=== PATIENT | female | born 1980 | race Caucasian/White ===

== ENCOUNTER → 2017-01-28 | Outpatient (CLI) | payer MEDICAID ==
[~2017-01-28] VITALS: Ht 172.7 cm; Wt 180.6 kg
[~2017-01-28] MED LIST: INVEGA TRI273 MG/0.8 IM; LASIX 40MG TABL40 MG PO; MICRO-K 10 EXT10 MEQ PO; NORCO 325 MG-51 TAB PO; OMEGA-3 1000 MG1 CAP PO; SYNTHROID0.1 MG/TAB PO; ULTRAM 50MG TAB50 MG PO
[2017-01-28 10:51] VITALS: BP 136/86; PULSE 83
[2017-01-28 12:10] VITALS: BP 144/74; PULSE 102
[2017-01-28 12:11] VITALS: BP 130/67; PULSE 102
[2017-01-28 12:13] VITALS: BP 123/68; PULSE 98
== END ==
LOC: COL.CARD 09:54
DX: Z01.810 Encounter for preprocedural cardiovascular examination (principal); R06.02 Shortness of breath
CPT/HCPCS: A9502; J2785

== ENCOUNTER 2017-02-07 12:13 | Observation (INO) | payer MEDICAID ==
[~2017-02-07] VITALS: Ht 167.6 cm; Wt 182.7 kg
[~2017-02-07 12:13] MED LIST changes: -MICRO-K 10 EXT10 MEQ PO; -OMEGA-3 1000 MG1 CAP PO
[2017-02-07 12:47] LABS: CALCIUM 9.6 mg/dL (8.4-10.2); CREATININE, serum 0.66 mg/dL (0.52-1.25); HEMATOCRIT 45.4 % (37.0-47.0); HEMOGLOBIN 15.6 g/dl (12.5-16.0); MEAN CELL VOLUME 93 fl (80.0-100.0); MEAN CORPUSCULAR HEMOGLOBIN 32 pg (27.0-31.0); MEAN CORPUSCULAR HGB CONC 34 g/dl (33.0-37.0); MEAN PLATELET VOLUME 10.1 fl (7.4-10.4); PLATELET COUNT 219 K/mm3 (130-400); POTASSIUM 3.9 mmol/L (3.4-5.0); RED BLOOD COUNT 4.91 M/mm3 (4.10-5.30); REDCELL DISTRIBUTION WIDTH-CV 13.4 % (11.5-14.5); WHITE BLOOD COUNT 10.5 K/mm3 (4.8-10.8)
[2017-02-07 14:35] VITALS: BP 125/81; PULSE 89; TEMP 98.6
[2017-02-07 14:56] LABS: INR 1.1 (0.8-3.0); PROTHROMBIN TIME 12.6 SECONDS (9.7-12.8)
[2017-02-07] MEDS ORDERED: OMEGA-3 1000 MG1 CAP PO (16:09)
[2017-02-07] MEDS ORDERED: MICRO-K 10 EXT10 MEQ PO (20:42)
[2017-02-07 21:35] VITALS: BP 118/56; PULSE 84; TEMP 98.4
[2017-02-08] VITALS (8 sets, daily range): BP systolic 96–142; BP diastolic 53–91; PULSE 73–90; TEMP 97.5–97.8
== END 2017-02-08 16:42 | disposition home or self-care (01) ==
LOC: COL.CAR 12:13 → MEDICAL 16:42
PROVIDERS: Internal Medicine Interventional Cardiology
DX: I51.9 Heart disease, unspecified (principal); E66.01 Morbid (severe) obesity due to excess calories; E03.9 Hypothyroidism, unspecified; R60.9 Edema, unspecified
CPT/HCPCS: C1760; C1769; C1894; G0378; G0379; J2250; J2270; J3010; Q9967

== ENCOUNTER 2020-03-28 15:15 | Inpatient (IN) | payer MEDICAID ==
--- NOTE | 2020-03-27 19:00 | NUR ---
RECEIVED CHANGE OF SHIFT REPORT FROM DAY SHIFT NURSE. BED ALARM ON.
[~2020-03-28] VITALS: Ht 172.7 cm; Wt 124.9 kg
[~2020-03-28 15:15] MED LIST changes: +ATARAX 25MG25 MG/TAB PO; +DAZIDOX10 MG PO; +INVEGA SUSTENN156 MG IM; -INVEGA TRI273 MG/0.8 IM; +MICRO-K 10 EXT10 MEQ PO; +MINIPRESS2 MG PO; +NEURONTIN100 MG/CAP PO; +NEURONTIN300 MG/CAP PO; +OMEGA-3 1000 MG1 CAP PO; +VIIBRYD40 MG PO; +XANAX 0.5MG0.5 MG PO
--- NOTE | 2020-03-28 18:00 | NUR ---
Patient transfered by bed. Oriented to room. Will report off to shift engineer.
[2020-03-28] MEDS ORDERED: FLOMAX 0.40.4 MG/CAP PO (18:53)
[2020-03-28] MEDS ORDERED: PYRIDIUM200 M1 (18:53)
[2020-03-28] MEDS ORDERED: PYRIDIUM200 M1 PO (18:54)
[2020-03-28] MEDS ORDERED: LIDOJEL (18:58)
[2020-03-28] MEDS ORDERED: CUBICIN 500MG500 MG IV (19:00)
[2020-03-28] MEDS ORDERED: XANAX .25M0.25 MG/TA PO (19:01)
[2020-03-28] MEDS ORDERED: SILVADENE CREAM1 TU TP (19:02)
[2020-03-28] MEDS ORDERED: IPRATROPIUM BROM3 M1 IH ×2 (19:05→19:15)
[2020-03-28] MEDS ORDERED: MUCUS RELIEF200 MG PO (19:06)
[2020-03-28] MEDS ORDERED: TESSALON P100 MG/CAP PO (19:10)
[2020-03-28] MEDS ORDERED: NEURONTIN300 MG/CAP PO (19:12)
[2020-03-28] MEDS ORDERED: ASPERCREME1 EACH TP (19:12)
[2020-03-28] MEDS ORDERED: ELIQUIS 5MG PO (19:13)
[2020-03-28] MEDS ORDERED: LOTSPY TOP (19:14)
[2020-03-28] MEDS ORDERED: VIIBRYD40 MG PO (19:15)
[2020-03-28] MEDS ORDERED: GLUTOSE 1515 GM PO (19:16)
[2020-03-28] MEDS ORDERED: NORMAL SALINE FL5 ML IV (19:16)
[2020-03-28] MEDS ORDERED: [UNRECOGNIZED DRUG - OTHER] IV (19:18)
[2020-03-28] MEDS ORDERED: DEXTROSE 525 GM/50 M IJ (19:20)
[2020-03-28 19:21] VITALS: BP 92/51; PULSE 108; TEMP 98.1
--- NOTE | 2020-03-28 20:00 | NUR ---
PATIENT WITH WEAKNESS TO BLE D/T SWELLING, YANDEL HAND CAREER MANAGER EQUAL. SPEECH CLEAR AND APPROPRIATE, ALERT AND ORIENTED AT THIS TIME. CONTINUES TO BE IN CONTACT ISOLATION FROM LLE CELLULITIS. PICC LINE IN PLACE W/FABIANO DRESSING COVERING. BED ALARM ON.
[2020-03-28] MEDS ORDERED: LASIX 40MG TABL40 MG PO (20:02)
[2020-03-28] MEDS ORDERED: DAZIDOX10 MG PO (20:03)
[2020-03-28] MEDS ORDERED: MINIPRESS2 MG PO (20:05)
[2020-03-28] MEDS ORDERED: K-TAB10 PO (20:07)
--- NOTE | 2020-03-29 00:17 | NUR ---
DRESSING CHANGE TO LLE PER DR ORDER. BED ALARM ON WHILE PATIENT IN BED. OBSERVED YELLOWISH CLEAR DRAINAGE FROM LLE FLUID FILLED RAISED AREA TO LATERAL LEFT LEG
[2020-03-29 05:56] VITALS: BP 92/54; PULSE 107; TEMP 97.7
--- NOTE | 2020-03-29 07:40 | NUR ---
CHANGE OF SHIFT REPORT GIVEN TO DAY SHIFT NURSEALEX. BED ALARM ON.
[2020-03-29 10:29] VITALS: BP 91/61; PULSE 103
[2020-03-29 11:02] LABS: CALCIUM 7.4 mg/dL (8.4-10.2); CREATININE, serum 0.64 (0.52-1.25); MAGNESIUM 1.6 mg/dL (1.6-2.3); POTASSIUM 3.7 mmol/L (3.4-5.0)
--- NOTE | 2020-03-29 15:27 | NUR ---
Assistant Branch Manager met with patient to complete intake as patient is new to [facility]. Patient lives in [place] with her two children ages 18 and 15. Patient states her 15 year old daughter is staying with her mother, Camille (ph#[phone]) and her 18 year old son is at home with her boyfriend, Felix Arrington checking in periodically to make sure he is going to school. Patient has been seeing OZZY Urena for primary care at [facility] but reports she would like to switch primary care providers. SW will follow up with list of [place] providers per patient's request. Patient obtains medications from [facility] in [place] and has a walker and rollator at home. Patient states she was independent with ADLS before getting sick. SW will continue to follow.
[2020-03-29 16:11] LABS: COLLECTION METHOD CLEAN CATCH
[2020-03-29 16:23] LABS: HYALINE CAST >12 /lpf; MUCOUS Present /lpf; PH 5 (5-8); SQUAMOUS EPITHELIAL None Seen /hpf; URINE APPEARANCE Hazy; URINE BACTERIA Rare /hpf; URINE BILIRUBIN Negative (NEGATIVE); URINE BLOOD 2+ (NEGATIVE); URINE CALCIUM OXALATE CRYSTAL Present /hpf; URINE COLOR Amber; URINE GLUCOSE Negative (NEGATIVE); URINE KETONE Negative (NEGATIVE); URINE LEUKOCYTE ESTERASE Negative (NEGATIVE); URINE NITRATE Negative (NEGATIVE); URINE PROTEIN(semi-quant) Negative (NEGATIVE); URINE UROBILINOGEN Negative (NEGATIVE)
[2020-03-29 17:39] VITALS: BP 98/62; PULSE 97; TEMP 98
--- NOTE | 2020-03-29 20:02 | NUR ---
Patient attended all therapies today. She is currently resting in bed, call light in reach and bed alarm set. Dressing changed to right buttock stage II ulcer measuring 2cm x 1 cm oblong shape. Area cleaned patted dry and applied new mepilex to area. Schneider Catheter was removed at 5:00 PM this evening with no complications per orders of Dr. Abdi. Patient had some yeast build up in kathy area and this nurse asked for an order for Diflucan. Awaiting Dr. Abdi to put order in. Patient reporting itching, redness and discharge. This was reported to night nurse. Urine was tea colored and had sedement and UA/UC was collected and sent to lab. Awaiting results. Patient had nausea this morning a few times and was given prn Zofran with good effect. Dressing was changed to left lower leg with yellow serous drainage observed. Area was redressed with silvaderm cream/ xeroform/abd pad/ and kerlix. Will continue to monitor. Patient does not eat large meals due to her prior bariatric surgery. She did not eat much of each meal, but does like small meals and did have jello in between meals today.
--- NOTE | 2020-03-29 22:26 | NUR ---
Handover received from AMANDA Gonsalez. Pt was on her bed while this nurse went for bedsite handover. Pt seems relaxed and and rested. Pt stated that she feels better after having shower. Pt assessment completed and charted, alert, oriented, roomair. Meds provided as per MAR, pt vomited after a while of taking meds. However, pt refused to take zofran saying that she feels better after wards. PRN pain meds provided on pt request. Pt is settled on her bed, watching tv. Call light is on reach, bed alarm is on, No further needs at this time. Will keep monitoring.
[2020-03-30 06:00] VITALS: BP 103/63; PULSE 98; TEMP 98.1
--- NOTE | 2020-03-30 07:58 | NUR ---
Pt had an uneventful night. Handover given to the day shift. No further needs at this time.
[2020-03-30 08:04] LABS: CALCIUM 7.3 mg/dL (8.4-10.2); CREATININE, serum 0.61 (0.52-1.25); POTASSIUM 3.2 mmol/L (3.4-5.0)
--- NOTE | 2020-03-30 09:44 | NUR ---
PATIENT A&OX4. VSS. TACHYCARDIA NOTED. 3+ PITTING-EDEMA WITH WEEPING TO BLE. LLE DRESSING REMOVED, SEROUS DRAINAGE PRESENT ON DRESSING. SILVER OINTMENT APPLIED, ABD PADS, KERLIX AND WRAPPED WITH AN FABIANO WRAP. MULTIPLE SKIN TEARS TO LEFT FOOT AND BLEEDING THROUGH SOCK. BANDAIDS APPLIED TO LEFT FOOT. PATIENT TOLERATED WELL. 2+ PITTING EDEMA TO RIGHT HAND. PICC LINE FLUSHING WITHOUT ANY PROBLEMS. FABIANO WRAP AROUND PICC LINE SITE LOOSENED AND RE-WRAPPED. GENERALIZED EDEMA NOTED. ECCHYMOSIS TO LEFT SIDE, BACK AND LUE, SKIN INTACT. MEPLEX DRESSING IN PLACE TO COCCYX PRESSURE ULCER. PATIENT BOOSTED AND REPOSITIONED IN BED. NO OTHER NEEDS AT THIS TIME.
--- NOTE | 2020-03-30 12:05 | NUR ---
PATIENT REQUESTING MEDICATION FOR PAIN AND ANXIETY. PATENT GIVEN PRN TYLENOL AND XANAX AT THIS TIME. LIDOCAINE PATCH APPLIED TO MIDDLE OF LOW BACK. PATIENT REPORTING PAIN AT A 7/10 ON A 0-10 SCALE. RUE CONTINUES TO BE EDEMATOUS. PICC LINE FABIANO WRAP REMOVED, ARM WRAPPED IN A CHUCKS PAD DUE TO WEEPING AND ELEVATED ON A PILLOW. WILL CONTINUE TO MONITOR.
--- NOTE | 2020-03-30 13:20 | NUR ---
PICC intact right upper arm. warm moist pack distal to site. patient reported discomfort to lower outer forearm. some swelling noted at upper forearm.
--- NOTE | 2020-03-30 14:21 | NUR ---
OZZY LOZADA CALLED AND NOTIFIED THAT THE PATIENT CANNOT HANDLE THE EFFER-K POTASSIUM REPLACEMENT DUE TO HER GASTRIC BYPASS. SKIN FITTER WOULD LIKE FOR THE PATIENT TO BE STARTED ON A MULTIVITAMIN WITH MINERALS, WITHOUT IRON DUE TO GI UPSET. PATIENT STATES THAT THE FLUID RESTRICTION WAS DISCONTINUED, THIS NURSE CANNOT FIND DOCUMENTATION OF IT. THIS NURSE GOT IN REPORT THE THAT DOCTOR GAVE THE DAY SHIFT NURSE YESTERDAY A VERBAL ORDER FOR DIFLUCAN THAT WAS NOT PUT INTO THE COMPUTER AND THIS NURSE IS UNABLE TO FIND DOCUMENTATION OF ANY ORDERS. PATIENTS MOTHER BROUGHT IN HER PSYCHIATRIC INJECTION FOR PATIENT.
[2020-03-30 16:53] VITALS: BP 102/57; PULSE 103; TEMP 97.4
--- NOTE | 2020-03-30 18:34 | NUR ---
PAIN AND ANXIETY MEDICATIONS GIVEN NEEDED THROUGHOUT MY SHIFT. PATIENT FINISHED DINNER. PATIENT UP TO THE BATHROOM AT THIS TIME WITH THE MATTRESS AND FOUNDATION SEWER. WILL REPORT OFF TO ONCOMING NURSE.
--- NOTE | 2020-03-30 19:27 | NUR ---
one 50 mg diflucan tablet found dropped by patient. medication wasted. new 50mg tablet pulled and given to patient at this time.
--- NOTE | 2020-03-30 21:00 | NUR ---
PT A&O. RESTING IN BED. REMAINS IN ISOLATION FOR VRE OF WOUND ON LLE. PT PLEASANT AND COOPERATIVE. ASKING FOR PAIN AND XANAX. SEE MAR. UP TO BR AT SHIDT CHANGE. PT VOIDING W/O DIFFICULTY. 2:1 UP FROM TOILET. LEGS TOO WEAK. REQUIRED STAFF TO LIFT LEGS INTO BED. WARM PACK PLACED TO LT ARM- DVT. ELEVATED ON PILLOWS. LT LEG WEEPING ON TO KELLI. LOTION APPLIED TO LLE AND RT FOOT. PT REQUESTED BLINDS PULLED D/[facility] CALL LIGHT IN REACH. BED ALARM SET.
[2020-03-31 06:06] VITALS: BP 96/60; PULSE 92; TEMP 97.3
--- NOTE | 2020-03-31 13:00 | NUR ---
PICC intact right upper arm. upper forearm soft and supple with decreased swelling. no concerns voiced.
--- NOTE | 2020-03-31 13:27 | NUR ---
Admission QIM scores were reviewed by the team. Code of 3 chosen for toilet hygiene was determined by team discussion to be the most usual performance for this patient during the assessment period. Code of 3 chosen for toileting transfers was determined by team discussion to be the most usual performance for this patient during the assessment period. Code of 1 for sit to stand was determined by team discussion to be the most usual performance for this patient during the assessment period. Code of 1 for chair/bed to chair transfers was determined by team discussion to be the most usual performance for this patient during the assessment period.--Cassandra Penaloza, PD
--- NOTE | 2020-03-31 14:55 | NUR ---
Asbestos Microscopist checked in with patient before the weekend and provided list of primary care providers in [place]. SW will follow up with patient next week on choice for primary care.
[2020-03-31 17:17] VITALS: BP 95/65; PULSE 102; TEMP 97.2
--- NOTE | 2020-03-31 17:53 | NUR ---
Patient resting in bed watching television at this time. Patient is alert and oriented, answers questions appropriately. Patient has c/o pain several times today, discussed pain medication schedule and doses. Dressing to LLE changed per order, no drainage noted on old dressing, patient did c/o it being too tight and painful, verbalized comfort with new dressing. RLE has wept significantly today, sock and absorbant pad under leg became saturated more than once. Patient currently denies further needs, call light within reach, bed alarm on.
--- NOTE | 2020-03-31 21:00 | NUR ---
PT MAINTAINS ISOLATION FOR VRE OF LLE WOUND. PT ASKING FOR PAIN MEDICATIONS AND XANAX TONIGHT. SEE MAR. PANNUS CLEANED. ALMOST HEALED. DESENEX APLIED TO AREA. PT RELATES TONGUE IS SORE- THRUSH. HAD DIFLUCAN YESTERDAY. PT MORBIDLY OBESE BUT REPOSITIONS SELF FOR COMFORT. CALL LIGHT IN REACH. BED ALARMS SET.
--- NOTE | 2020-03-31 23:00 | NUR ---
PT SET OFF BED ALARM. FOUND PT SITTING ON SIDE OF BED. PT SITTING TOWARD LOWER END OF BED. PT RELATED WAS JUST SITTING. DIDNT NEED ANYTHING.
--- NOTE | 2020-04-01 05:30 | NUR ---
PT AWAKE. RT LOWER LEG DRSG CHANGE COMPLETED. PT RELATES "IT LOOKS SO UCH BETTER" SILVADENE OINTMENT APPLIED. XEROFORM TO WOUNDS ON ANTERIOR AND MEDIAL WOUNDS. NO EXCESSIVE DRAIANGE NOTED. LOWER LEG CRINKLED D/T IMPROING EDEMA. ABD DRSGS APPLIED THEN KERLIX THEN NEW FABIANO WRAPS. PT TOLERATED WELL. RT LOWER LEG SL INFLAMMED. STILL WEEPING MODERATE AMT OF SEROUS DRAINAGE. FLOATED HEELS ON PILLOWS. NO NEEDS AT THIS TIME. CALL LIGHT IN REACH. BED ALARM SET..
[2020-04-01 06:33] VITALS: BP 98/62; PULSE 96; TEMP 98.1
--- NOTE | 2020-04-01 15:12 | NUR ---
Patient resting in bed, call light in reach, attended morning therapies (PT/Group/OT) and tolerated well. Patient reported pain to mouth and tongue see new order for Nystatin Swish and Swallow. Following therapies this morning patient had more right arm edema. This nurse applied a warm compress to the area and elevated arm. Will continue to monitor.
--- NOTE | 2020-04-01 15:36 | NUR ---
This nurse spoke with AMANDA Dominguez and he reported that patient will need to continue on Contact Precautions for VRE per protocol even after completing antibiotic and even following a repeat culture. This was communicated to patient. Will continue to monitor.
--- NOTE | 2020-04-01 15:37 | NUR ---
Potassium lab drawn today and is in normal range. See new order for Potassium. Potassium Replacement Protocol was DC'd per [place].
[2020-04-01 17:56] VITALS: BP 93/54; PULSE 102; TEMP 97.4
--- NOTE | 2020-04-01 21:00 | NUR ---
PT RESTING IN BED. REQUESTING PAIN MEDICATION EARLIER FOR LEG PAIN. SEE MAR. CONTINUED ISOLATION FOR VRE. CONTINUED FREE H20/FLUID RESTRICTIONS. CALL LIGHT IN REACH. BED ALARM SET.
[2020-04-02 05:33] VITALS: BP 97/58; PULSE 100; TEMP 97.6
--- NOTE | 2020-04-02 06:08 | NUR ---
DRESSING CHANGE TO LT LOWER LEG COMPLETED. SILVADENE CREAM,XEROFORM,4X4'S,KERLIX AND FABIANO REAPLLIED. WOUND INTACT WITH SCABBING TO ANTERIOR AND MEDIAL LOWER LEG. MINIMAL DRAINAGE NOTED. HEALING CONTINUES. PT LELA WELL.
--- NOTE | 2020-04-02 06:36 | NUR ---
PT C/O RT LOWER ARM ACHING ESPECIALLY AT THE PALM. FINGER COOL BILAT. PULSES PRESENT BILAT EQUAL. WARM PACK TO RT ARM AND ELEVATED ON PILLOWS.
--- NOTE | 2020-04-02 13:19 | NUR ---
Patient walked to bathroom and was able to pull pants up and down, but staff wiped her. Patient walked to the wheelchair and then wheeled herself to the sink and did all her own grooming and brushing of teeth. Patient had lunch with her mother while sitting in her wheelchair. Patient was then transferred to her bed where her dressing to her left leg was changed. Area was cleaned, patted dry and dressed per protocol. Right leg continues to weep with yellow drainage and chucks pad underneath was changed out. She has more edema bilateral to both legs due to sitting in her wheelchair for a couple of hours while visiting with mother. Patient is currently resting in bed, call light in reach, bed alarm set and feet elevated over her heart. Area to her abdomen/pannus was cleaned patted dry and applied more desenex powder. Patient denies any questions at this time. Bladder scan completed due to patient not urinating as often, but it showed 190ml retention prior to urine output. Will continue to monitor. Patient not having any symptoms of frequency, burning or iritation at this time. Patient continus to use nystatin swish and swallow for mouth pain and she reports that it is improving. Will continue to monitor.
[2020-04-02 17:53] VITALS: BP 96/64; PULSE 105; TEMP 98
--- NOTE | 2020-04-02 21:00 | NUR ---
CALL LIGHT IN REACH.PT RESTING IN BED. TYLENOL GIVEN- SEE MAR FOR YANDEL LOWER LEG PAIN. ASSISTED TO STANDING. PT AMB WITH WALKER TO BR. HAD LG EXPLOSIVE GREENIS BROWN BM. REQUIRED ASSIST WITH HYGEINE. AMB TO WC. SITTING UP FOR AWHILE.
--- NOTE | 2020-04-02 23:14 | NUR ---
PT VERY NEEDY TONIGHT. USING CALL LIGHT FREQUENTLY. FOUND SHE HAD ORDERED PIZZA HUT. WANTED JUICE, ICE CHIPS, EMSURE. PAIN PILL, WARM BLANKET. RT ARM WARM MOIST PACK. ENC PT TO KEEP WITH IN HER FLUID RESTRICTION LIMIT. DISCUSSED NA INTAKE. PT EXHIBITING VERY MANIPULATIVE BEHAVIOR. SEE MAR FOR ROXICODONE. CALL LIGHT IN REACH. BED ALARM SET.
--- NOTE | 2020-04-03 03:06 | NUR ---
ASSISTED PT TO BR W/WALKER. HAD MED LOOSE STOOL. PLACED SACRAL DRSG TO GLUTEAL CLEFT. SMALL LINEAR OPENING WITH SMALL AMT BLOOD NOTED.
[2020-04-03 05:37] VITALS: BP 96/58; PULSE 103; TEMP 98.2
--- NOTE | 2020-04-03 06:24 | NUR ---
DRESSING CHANGE TO LLE. WOUND IMPROVING. MINIMAL DRAINAGE. PT TOLERATERD WELL. ASSISTED TO BR HAD ANOTHER LOOSE BM. PT RELATES HAVING STOMACH TROUBLE THIS MORNING. BACK TO BED. LOTION TO RT LOWER LEG. CALL LIGHT IN REACH. BED ALARM SET.
[2020-04-03 06:55] LABS: BASO % 0.2 % (0.0-2.0); EOS % 0.2 % (0-4.0); GRAN # 2.4 (1.4-6.5); GRAN % 49.2 % (42.2-75.2); LYMPH # 2.1 (1.2-3.4); LYMPH % 41.7 % (20.0-51.0); MEAN CELL VOLUME 116 fl (80.0-100.0); MEAN CORPUSCULAR HGB CONC 32 g/dl (33.0-37.0); MEAN PLATELET VOLUME 10.1 fl (7.4-10.4); MONO # 0.4 (0.1-0.6); MONO % 7.9 % (1.7-9.3); PLATELET COUNT 139 K/mm3 (130-400); RED BLOOD COUNT 2.12 M/mm3 (4.10-5.30); REDCELL DISTRIBUTION WIDTH-CV 19.6 % (11.5-14.5)
[2020-04-03 06:56] LABS: HEMATOCRIT 24.6 % (37.0-47.0); HEMOGLOBIN 7.9 g/dl (12.5-16.0); MEAN CORPUSCULAR HEMOGLOBIN 37 pg (27.0-31.0)
[2020-04-03 07:15] LABS: ALBUMIN 1.8 gm/dL (3.5-5.0); CALCIUM 7.5 mg/dL (8.4-10.2); CREATININE, serum 0.53 (0.52-1.25); MAGNESIUM 1.9 mg/dL (1.6-2.3); POTASSIUM 3.8 mmol/L (3.4-5.0); TOTAL PROTEIN 4.4 gm/dL (6.4-8.2)
--- NOTE | 2020-04-03 09:06 | NUR ---
PATIENT SLEEPING IN BED AT BEDSIDE SHIFT REPORT. PATIENT C/O MIGRAINE HEADACHE THIS AM, PRN NEREYDA GIVEN AND PRN THERAGRAN FOR NAUSEA. PATIENT STATES SHE DISLIKES JUICE AND WOULD LIKE TO TALK TO PHYSICIAN ABOUT FLUID RESTRICTION.
--- NOTE | 2020-04-03 15:10 | NUR ---
PICC intact right upper arm. Dressing change done with sterile technique. Insertion site cleansed with ChloraPrep 1, chlorhexidine impregnated disc applied, skin prep, StatLock, and Tegaderm applied. no signs or symptoms of IV complications noted. No concerns voiced.
--- NOTE | 2020-04-03 16:22 | NUR ---
PATIENT C/O NAUSEA AND MIGRAINE THIS AM, IMATREX ORDERED AND WAS EFFECTIVE. CHELSEA WITH INFECTIOUS DISEASE WAS UPDATED TODAY, THAT PATIENT FINISHED ANTIBIOTIC THERAPY, AWAITING TO HEAR BACK IF SHE NEEDS TO REMAIN ON CONTACT PRECAUTIONS. WILL WRAP RIGHT LEG WELL FOR SWELLING PER PA'S ORDERS AND WILL CHANGED LLE DRESSING CLOSER TO ONCOMING SHIFT.
--- NOTE | 2020-04-03 16:53 | NUR ---
Treasury Assistant checked in with patient who advised she is still reviewing list of primary care providers. SW will continue to follow.
[2020-04-03 17:05] VITALS: BP 104/66; PULSE 101; TEMP 97.7
--- NOTE | 2020-04-03 18:04 | NUR ---
DRESSING CHANGED TO LLE. NO DRAINAGE NOTED. SILVER SULFADIAZINE APPLIED, THEN XERAFORM, THEN TWO ABD, KERLIX, AND FABIANO WRAPS. WRAPPED RLE EXTREMETY WITH KERLIX AND FABIANO WRAPS WELL FOR SWELLING AND DRAINAGE. ZINC APPLIED TO GLUTEAL CLEFT, ALLEVYN DRESSING WAS SOILED, WILL REPLACE. GROIN AND PANNUS CHECKED FOR REDNESS OR IRRITAION, NONE NOTED.
--- NOTE | 2020-04-03 19:35 | NUR ---
Pt was watching her phone when this nurse went for bedside report. Pt seems rested. No further needs at this time.
--- NOTE | 2020-04-03 22:54 | NUR ---
Pt assessment completed and charted, alert, oriented, roomair. Meds provided as per MAR, as well as PRN pain meds and Xanax. Pt is settled on her bed, call light is on reach, bed alarm is on. No further needs at this time.
[2020-04-04 03:16] VITALS: BP 91/57; PULSE 99; TEMP 99.2
--- NOTE | 2020-04-04 05:20 | NUR ---
Pt slept on and off through out the night. Pt stated that she is not able to sleep and was asking for pain meds, position change, and help to to restroom couple of times. Pt fall asleep in the late morning. No further needs at this time.
--- NOTE | 2020-04-04 07:00 | NUR ---
PATIENT RESTING IN BED AT BEDSIDE SHIFT REPORT, PER NURSE REPORT NO DRAINAGE NOTED WHEN DRESSING CHANGED. PATIENT SLEPT VERY LITTLE LAST NIGHT PER REPORT. BED IN LOW, CALL LIGHT WITHIN REACH.
--- NOTE | 2020-04-04 07:01 | NUR ---
Dressing done on her LLE around 0600. Used silver ointment, xeroform, ABD pads, and Kerlix wrap. LLE sores has no drainage on dressing pads, the sore looks dry and wrinkles all over her foot. Pt was happy seeing the progress on her foot. Also did the dressing change on her RLE, the dressing was dry and clean. Wrapped her legs with some kerlix wraps. Elevated her both legs over pillows. Pt is resting on her bed, No further needs at this time.
--- NOTE | 2020-04-04 07:26 | NUR ---
Handover provided to the day shift nurse, AMANDA Brown.
--- NOTE | 2020-04-04 09:08 | NUR ---
PATIENT C/O CHEST TIGHTNESS AND SOB WHILE WORKING WITH PT. PATIENT WAS TACHYCARDIC AT 122 AND BP WHEN CAME BACKT TO ROOM WAS 104/65. PATIENT THREW UP WHEN CAME BACK TO ROOM. DR. CERNA NOTIFIED, WILL CONTINUE TO MONITOR.
--- NOTE | 2020-04-04 09:55 | NUR ---
Wound care and isolation requirements reviewed with unit RNStephanie. Stephanie reports patient has completed antibiotic regimen; left leg wound with dressing in place---Stephanie reports dressing remains dry between q shift changes. Patient also has weeping cellulitis of right leg with intermittent lesions from lower leg to hip area--drainage of quantity to cause Chux to be damp periodically. Patient is continent of bladder and bowel. Infection control recommends continued transmission precautions due to weeping lesions of right leg and recent known VRE of left leg. Will review precautions when or if leg drainage stops. Pina Ruiz RN
[2020-04-04 16:56] VITALS: BP 102/65; PULSE 98; TEMP 98.2
--- NOTE | 2020-04-04 19:43 | NUR ---
PATIENT C/O PAIN TODAY, RECEIVED TWO PRN DOSES OF ROXICODONE. PATIENT'S SACRAL DRESSING WAS CHANGED, AQUACELL AG AND ALLEVYN IN PLACE. LLE WOUND DRESSING CHANGED. SILVER CREAM, XEREFORM, KERLIX AND FABIANO WRAP UTILIZED. NO DRAINAGE FOR THE LAST TWO DAYS. RLE WRAPPED WITH FABIANO WRAP WELL. SMALL AMOUNT OF DRAINAGE TO POSTERIOR CALF NOTED. PATIENT STATED SHE FEELS BETTER WITH BOTH EXTREMETIES WRAPPED.
--- NOTE | 2020-04-04 20:00 | NUR ---
Assessment complete. Patient complains of pain 3/10 in her back. Bilateral lower extremities are edematous; right leg is 2+ pitting and left leg is 1+ pitting; Both extremities are wrapped with kerlex and mimi wrap; No increased drainage noted. Stage II on sacrum is assessed at this time; No drainage noted; It is covered with CDI mepilex dressing. Right radial pulse is 1+ palpable and left is 2+. No increased work of breathing is noted and patient is on room air. Will continue to monitor.
[2020-04-05 04:23] VITALS: BP 106/59; PULSE 104; TEMP 98.1
--- NOTE | 2020-04-05 04:45 | NUR ---
Patient complaining of increased back pain at this time. Additional dose of 2.5 mg Roxycodone administered, per EMAR order. Will reassess in 45 minutes.
--- NOTE | 2020-04-05 14:11 | NUR ---
Unwrapped bilateral legs for patient to take a shower. No drainage with either leg when observing bilateral dressings. Will continue to monitor.
--- NOTE | 2020-04-05 14:32 | NUR ---
Patient working with pt at this time. She was unable to use slide board to the tub. They will be doing a sponge bath.
--- NOTE | 2020-04-05 15:56 | NUR ---
Corporate Associate met with patient to review and provide copy of team conference notes. SW advised patient that the team would re-evaluate in a week and patient verbalized understanding. SW spoke with patient about scheduling a family meeting a week from today. SW will follow up with patient's mother about her availability.
[2020-04-05 17:39] VITALS: BP 91/67; PULSE 102
--- NOTE | 2020-04-05 19:38 | NUR ---
Patient resting in bed, call light in reach and bed alarm is set. Patient attneded all therapies today. Dressings to bilateral legs were changed and there was no weeping observed with dressing change. Legs were wrapped from the feet to the thighs and has been helping with edema. Patient has a picc line and it flushes with no difficulty. She has been having good urine output this shift. Reported off to night nurse.
--- NOTE | 2020-04-05 21:00 | NUR ---
PT RESING IN INBED. ASSISTED TO BR WITH WALKER. STEADY SLOW GAIT. HAD MED LOOSE BROWN STOOL W/VOID. ASSITED TO W/C. UP TO SINK FOR HS CARES. FOUND PT HAD ORDERED FAST FOOD DELIVERY. W/C ALARM SET. CALL LIGHT IN REACH.
[2020-04-06 03:50] VITALS: BP 92/53; PULSE 90; TEMP 97.2
--- NOTE | 2020-04-06 15:08 | NUR ---
Review of care with Kaye PATEL. Reports wrapping both lower extremities to assist with fluid shift. Drainage/ weeping decreased X48 hrs to point dressing remaining dry at all times. Recommend staff wear gown + gloves with all dressing manipulation in combination with hand hygiene. Patient to perform hand hygiene and don clean gown when transferring out of room for therapy needs. Staff cautioned if at anytime weeping in excess of wrapping occurs -- must return patient to full contact precautions. Pina Ruiz RN
[2020-04-06 17:04] VITALS: BP 90/60; PULSE 102; TEMP 97.4
--- NOTE | 2020-04-06 17:41 | NUR ---
Patient attended all therapies today. Dressing to bilateral legs were changed this afternoon. No drainage was observed to either leg. Call placed to Edwina with infection control and she repoted that since patient legs are no longer weeping the following protocol can be put in place: When doing dressing changes to bilateral legs staff is to wear a gown and gloves.; Patient is to have good hand hygiene at all times; Patient is to have a clean gown placed on her when leaving her room for therapies/or anything else.; When patient is discharged the room will need to be treated per VRE infection protocol.
--- NOTE | 2020-04-07 04:26 | NUR ---
PT USING CALL LIGHT FREQUENTLY [id number] AFTER DENYING ANY OTHER NEEDS. ENC PT TO REQUEST NEEDS TOGETHER IF POSSIBLE.
[2020-04-07 05:55] VITALS: BP 104/60; PULSE 103; TEMP 98.6
[2020-04-07 08:10] LABS: BASO % 0.4 % (0.0-2.0); EOS % 0.4 % (0-4.0); GRAN # 1.9 (1.4-6.5); GRAN % 40.8 % (42.2-75.2); LYMPH # 2.3 (1.2-3.4); LYMPH % 48.8 % (20.0-51.0); MEAN CELL VOLUME 116 fl (80.0-100.0); MEAN CORPUSCULAR HGB CONC 32 g/dl (33.0-37.0); MEAN PLATELET VOLUME 10.4 fl (7.4-10.4); MONO # 0.4 (0.1-0.6); MONO % 9.4 % (1.7-9.3); PLATELET COUNT 160 K/mm3 (130-400); RED BLOOD COUNT 2.09 M/mm3 (4.10-5.30); REDCELL DISTRIBUTION WIDTH-CV 18.2 % (11.5-14.5); RETIC # 0.16 M/mm3 (0.02-0.16); RETIC % 7.9 % (0.5-3.52)
[2020-04-07 08:12] LABS: HEMATOCRIT 24.2 % (37.0-47.0); HEMOGLOBIN 7.8 g/dl (12.5-16.0); MEAN CORPUSCULAR HEMOGLOBIN 37 pg (27.0-31.0)
[2020-04-07 08:30] LABS: ALBUMIN 1.7 gm/dL (3.5-5.0); BILIRUBIN,TOTAL 1.4 mg/dL (0.0-1.0); CALCIUM 7.4 mg/dL (8.4-10.2); CREATININE, serum 0.48 (0.52-1.25); POTASSIUM 3.9 mmol/L (3.4-5.0); TOTAL PROTEIN 4.1 gm/dL (6.4-8.2)
[2020-04-07 09:02] LABS: IRON,SERUM 55 ug/dL (35-150)
[2020-04-07 09:11] LABS: TOTAL IRON BINDING CAPACITY 186 ug/dL (265-497)
--- NOTE | 2020-04-07 09:35 | NUR ---
PATIENT RESTING IN BED AT BEDSIDE SHIFT REPORT. REQUESTING PRN IMATREX FOR MIGRAINE AND NAUSEA MEDICATION THIS AM. NEREYDA GIVEN AT 0940 FOR PAIN IN BACK AND LEG.
--- NOTE | 2020-04-07 16:29 | NUR ---
Grass Cutter met with patient before the weekend and patient states Friday at 1330 works for the family meeting but still unsure if her mother will attend in person or just call in. SW attempted to contact patient's mother Camille and left a message. SW will continue to follow.
[2020-04-07 17:25] LABS: FOLATE (FOLIC ACID) 6.2 ng/mL (7.0-31.4)
[2020-04-07 17:31] VITALS: BP 100/59; PULSE 98; TEMP 97.7
--- NOTE | 2020-04-07 19:30 | NUR ---
RECEIVED CHANGE OF SHIFT REPORT FROM DAY SHIFT NURSE. BED ALARM ON.
--- NOTE | 2020-04-07 20:00 | NUR ---
PATIENT REQUIRES PARTIAL ASSIST WITH GETTING BLE BACK INTO BED DUE TO BLE SWELLING/MUSCLE WEAKNESS THAT IS IMPROVING SLOWLY. DENIES CHEST PAIN/SHORTNESS OF BREATH AT THIS TIME. DENIES NUMBNESS AND TINGLING TO EXTREMITIES AT THIS TIME. BED ALARM ON. CONTACT PRECAUTIONS FOLLOWED WITH EVERY OTHER DAY LLE DRESSING CHANGES.
--- NOTE | 2020-04-07 20:03 | NUR ---
PATIENT RECIEVED PRN FLAVIA TWICE TODAY. PATIENT'S FLUID RESTRICTION CHANGED TO 1000 FREE WATER TODAY. PATIENT IS OFF OF ISOLATION UNLESS WOUND IS BEING REDRESSED. PATIENT'S DRESSING TO LLE WAS CDI TODAY SO LEFT IN PLACE. RLE HAD NO DRAINAGE AND WAS REWRAPPED TONIGHT. PATIENT RESTING IN BED AT BEDSIDE SHIFT REPORT.
[2020-04-08 05:49] VITALS: BP 98/68; PULSE 99; TEMP 97.6
--- NOTE | 2020-04-08 08:30 | NUR ---
CHANGE OF SHIFT REPORT GIVEN TO DAY SHIFT NURSEVERITO. BED ALARM ON.
[2020-04-08 18:27] VITALS: BP 99/58; PULSE 98; TEMP 98
--- NOTE | 2020-04-08 18:48 | NUR ---
CHANGE OF SHIFT REPORT FROM DAY SHIFT NURSE. BED ALARM ON.
--- NOTE | 2020-04-08 20:00 | NUR ---
PATIENT REQUIRES ASSIST GETTING BOTH LEGS UP INTO BED D/T SOME MUSCLE WEAKNESS THAT PERSISTS, ABLE TO WALK TO BATHROOM WITH ASST X1 WITH GB AND WW WITH STEADY GAIT. BED ALARM ON.
--- NOTE | 2020-04-09 04:00 | NUR ---
REQUESTED/GIVEN WARM PACK FOR RUE. UP IN W/C WITH CHAIR ALARM ON. NO OTHER NEEDS REPORTED.
[2020-04-09 05:03] VITALS: BP 97/63; PULSE 94; TEMP 97.6
--- NOTE | 2020-04-09 07:42 | NUR ---
CHANGE OF SHIFT REPORT GIVEN TO DAY SHIFT NURSEVERITO. BED ALARM ON.
[2020-04-09 16:40] VITALS: BP 98/58; PULSE 93; TEMP 98
--- NOTE | 2020-04-09 19:03 | NUR ---
RECEIVED CHANGE OF SHIFT REPORT FROM DAY SHIFT NURSE. BED ALARM ON.
--- NOTE | 2020-04-09 19:36 | NUR ---
PATIENT STILL REQUESTS ASSISTANCE WITH LIFTING HER LEGS BACK INTO BED. IS ABLE TO AMBULATE WITH NO PROBLEMS WITH SBA. SHE REPORTS SHE IS WORRIED ABOUT HER MOM. BED ALARM ON.
--- NOTE | 2020-04-09 19:53 | NUR ---
PATIENT HAD AN UNEVENTFUL DAY TODAY. PATIENT PROVIDED WITH PRN PAIN AND ANXIETY MEDICATIONS DURING THE SHIFT. RUE PICC LINE FLUSHING WELL. RLE WRAPPED WITH SOFT ROLL AND FABIANO WRAP FROM FOOT TO KNEE. LLE DRESSING REMOVED. NO DRAINAGE WEEPING THROUGH THE DRESSING NOTED. SILVER CREAM APPLIED TO LLE, XEROFORM, SOFT ROLL AND FABIANO WRAP FROM FOOT TO KNEE. PATIENT TOLERATED WELL. PATIENT ENCOURAGED TO BE MORE INDEPENDENT IN HER PERSONAL HYGIENE CARE. ZINC OINTMENT APPLIED TO GLUTE CLEFT SLIT. RIGHT CHEEK ALLEVYN DRESSING IN PLACE. PATIENT CURRENTLY RESTING IN BED. BED ALARM ON. REPORT GIVEN TO AMANDA HARE.
--- NOTE | 2020-04-10 02:58 | NUR ---
PATIENT DANGLED AT SIDE OF BED FOR SEVERAL MIN AFTER TAKING PAIN MEDS, SEE eMAR FOR MEDS GIVEN, PATIENT THEN REPOSITIONED TO SUPINE POSITIONED WITH MOD ASST FROM NURSING STAFF TO HELP SWING LEGS BACK INTO BED. BED ALARM ON.
[2020-04-10 05:10] VITALS: BP 103/60; PULSE 96; TEMP 98.4
--- NOTE | 2020-04-10 07:15 | NUR ---
CHANGE OF SHIFT REPORT GIVEN TO DAY SHIFT NURSEAVE. BED ALARM ON.
--- NOTE | 2020-04-10 07:17 | NUR ---
PATIENT SLEEPING IN BED AT BEDSIDE SHIFT REPORT. WILL CLARIFY ORDERS FOR FREQUENCY OF DRESSING CHANGE. PATIENT IS ON PRECAUTIONS ONLY WHEN DRESSING CHANGES ARE BEING DONE.
--- NOTE | 2020-04-10 15:20 | NUR ---
PICC intact right upper arm with sterile technique right upper arm PICC dressing change done with insertion site cleansed with chloraprep x 1, clorhexidine impregnated disk applied, skin prep, stat lock, and tegaderm applied. no signs or symptoms of IV complications noted. no concerns voiced. some fullness to lower arm
--- NOTE | 2020-04-10 15:59 | NUR ---
SAMY met with the patient to introduce oneself and to follow up after the weekend. The patient states that she is doing okay. She states that therapy did not go too well today. She states that she overworked herself in PT this morning and could not do much in the rest of her therapy sessions. SAMY followed up with her about the family meeting scheduled on Friday at 1330. The patient states that the meeting will still work, but that her mother has been having migraines and may not be able to be here for it. She states that her mother will be able to do the meeting over speaker phone, if she cannot attend in person. SW to continue to follow.
[2020-04-10 17:44] VITALS: BP 102/69; PULSE 94; TEMP 98
--- NOTE | 2020-04-10 18:09 | NUR ---
PATIENT C/O A 8/10 PAIN MOST OF THE DAY. RECEIVED PRN FLAVIA TWICE AND PHENAZOPYRIDINE TWICE FOR PAIN. PATIENT EDUCATED THAT THIS IS MOSTLY USED TO RELIEVE PAIN FROM URINARY TRACT INFECTIONS BUT PATIENT IS REQUESTING THIS MEDICATION. PATIENT'S WOUND DRESSING CHANGED YESTERDAY, CHANGING EVERY OTHER DAY. PATIENT'S RLE UNWRAPPED AND REWRAPPED, NO DRAINAGE NOTED. PATIENT RECEIEVED PRN NAUSEA MEDICATION THIS AM WELL.
--- NOTE | 2020-04-10 20:07 | NUR ---
Assessment complete at this time. Patient is alert and oriented, lung sounds clear throughout, heart sounds tachycardic with regular rhythm. Bilateral lower extremity and feet edema is present with 3+ edema. Lower extremities are wrapped with mimi bandage. Patient ambulates to bathroom with walker and voids a dark orange, clear urine with no foul odor. Patient complains of pain 6/10 in lower back and requests Tylenol. Will continue to monitor.
[2020-04-11 03:17] VITALS: BP 120/65; PULSE 104; TEMP 97.6
--- NOTE | 2020-04-11 15:03 | NUR ---
SAMY contacted the patient's mother, Camille, to follow up on if she would be able to attend the family meeting tomorrow. Camille reports that she does plan on attending the meeting in person tomorow. SAMY then met with the patient to update. SAMY also addressed a PCP. The patient's PCP was OZZY Urena at [facility] prior to hospitalization. The patient states that she is not sure yet if she wants to keep Yary Santillan as her PCP when she discharges. She states that she received a list of the different providers in [place], but is still deciding. She would like some more time to look the list over and to decide whether she wants a a new PCP and who or if she wants to keep OZZY Urena.
[2020-04-11 17:39] VITALS: BP 108/66; PULSE 91; TEMP 98
--- NOTE | 2020-04-11 19:31 | NUR ---
Patient attended all therapies today. Her upper thighs began to weep this morning, so patient is now placed back on Contact Percautions. Patient had a shower today and then had her dressings changed to her bilateral legs. She continues on fluid restrictions and has been staying well in her limit. She will be discharging on Friday. Reported off to night nurse.
--- NOTE | 2020-04-11 20:00 | NUR ---
Assessment complete at this time. Patient's upper legs and abdomen are weeping a clear fluid which has saturated the evangelina and gown. Patient still complains of lower back and right hand pain. Comfort measures are provided and call light in reach. Will continue to manage pain and maintain hygeine throughout the night.
[2020-04-12 05:09] LABS: BASO % 0.4 % (0.0-2.0); EOS % 0.6 % (0-4.0); GRAN # 2.3 (1.4-6.5); LYMPH # 2.4 (1.2-3.4); LYMPH % 46.2 % (20.0-51.0); MEAN CELL VOLUME 117 fl (80.0-100.0); MEAN CORPUSCULAR HGB CONC 32 g/dl (33.0-37.0); MEAN PLATELET VOLUME 9.6 fl (7.4-10.4); MONO # 0.4 (0.1-0.6); MONO % 7.6 % (1.7-9.3); PLATELET COUNT 193 K/mm3 (130-400); RED BLOOD COUNT 2.18 M/mm3 (4.10-5.30); REDCELL DISTRIBUTION WIDTH-CV 16.4 % (11.5-14.5)
[2020-04-12 05:10] LABS: HEMATOCRIT 25.4 % (37.0-47.0); HEMOGLOBIN 8.2 g/dl (12.5-16.0); MEAN CORPUSCULAR HEMOGLOBIN 38 pg (27.0-31.0)
[2020-04-12 05:19] LABS: ALBUMIN 1.6 gm/dL (3.5-5.0); BILIRUBIN,TOTAL 1.1 mg/dL (0.0-1.0); CALCIUM 7.2 mg/dL (8.4-10.2); CREATININE, serum 0.47 (0.52-1.25); MAGNESIUM 1.9 mg/dL (1.6-2.3); POTASSIUM 3.7 mmol/L (3.4-5.0)
[2020-04-12 05:33] VITALS: BP 97/63; PULSE 91; TEMP 98
--- NOTE | 2020-04-12 13:36 | NUR ---
Patient currently in her family meeting with therapy. Patient currently resting in bed, call light in reach and bed alarm is set. Mother is by her side at this time. Patient given a heat pad for right arm/hand. Patient has bilateral leg edema and has weeping to both thighs. Discussed discharge this Friday with family. Patient having generalized pain and given prn pain meds. Will continue to monitor.
--- NOTE | 2020-04-12 16:21 | NUR ---
After School Caregiver attended family conference which included patient, patient's mother Camille, IPR Director Cassandra, and PT/OT/ST. Cassandra opened the meeting by explaining it's purpose then the therapy team reviewed patient's progress. SAMY introduced self to patient's mother and explained role in discharge planning. Patient states she still has not made a final decision on primary care, but wants to change providers from her current provider in [place]. Patient would like to see a primary care physician who can also see her children. Camille reports they have had a poor experience with [facility] in [place] and states that patient's positive UDS for Opiates, Methamphetamines, and Coccaine is incorrect. Camille states she gives patient her prescription medications and that their family does not believe in drugs. Recommendation for outpatient PT/OT was reviewed and patient is not sure if she will do this at [facility] or somewhere in [place]. SAMY and Cassandra, IPR Director are following up on if patient can do PT/OT outpatient and residential home health services as patient has Medicaid. SW to continue to follow.
[2020-04-12 17:58] VITALS: BP 103/65; PULSE 94; TEMP 98.3
--- NOTE | 2020-04-12 19:00 | NUR ---
CHANGE OF SHIFT REPORT RECEIVED FROM DAY SHIFT NURSE. BED ALARM ON, WHEN IN BED.
--- NOTE | 2020-04-12 20:00 | NUR ---
Dressing was changed to bilateral legs and patient tolerated well. Area was cleaned, patted dry and new dressing applied. Patient tolerated well.
--- NOTE | 2020-04-12 20:00 | NUR ---
PATIENT CONTINUES IN CONTACT ISOLATION D/T ACTIVE DRAINAGE FROM R LATERAL THIGH/UPPER LEG. BED ALARM ON WHEN IN BED. DENIES CHEST PAIN/SHORTNESS OF BREATH. DENIES NUMBNESS/TINGLING TO EXTREMITIES AT THIS TIME.
[2020-04-13 05:19] VITALS: BP 98/50; PULSE 108; TEMP 98.6
--- NOTE | 2020-04-13 07:31 | NUR ---
CHANGE OF SHIFT REPORT GIVEN TO DAY SHIFT NURSEAVE. PATIENT CONTINUES ON CONTACT ISOLATION. BED ALARM ON.
--- NOTE | 2020-04-13 13:01 | NUR ---
PATIENT SLEEPING IN BED AT BEDSIDE SHIFT REPORT. PT REPORTED 8/10 PAIN THIS AM AND RECEIVED PRN FLAVIA AND LATER PRN PHENAZOPYRIDINE FOR PAIN. PATIENT AN EXTENSIVE X2 ASSIST TO STAND FROM WC TODAY. PATIENT SEEMS MORE ANXIOUS AND CALLING MORE FREQUENTLY TODAY.
[2020-04-13] MEDS ORDERED: PHENERGAN 25 TA25 MG PO (13:12)
[2020-04-13] MEDS ORDERED: PROAIR HFA0.09 MG/AC IH (13:12)
[2020-04-13] MEDS ORDERED: ELIQUIS 5MG PO (13:13)
[2020-04-13] MEDS ORDERED: ZINC OXIDE 28GM TOP (13:15)
[2020-04-13] MEDS ORDERED: MULTI-VITAMIN W1 TA1 PO (13:16)
[2020-04-13] MEDS ORDERED: XANAX .25M0.25 MG/TA PO (13:16)
[2020-04-13] MEDS ORDERED: MAG-OX 400400 MG/TAB PO (13:19)
[2020-04-13] MEDS ORDERED: FOLIC ACID 11 MG/TA1 PO (13:19)
[2020-04-13] MEDS ORDERED: K-TAB20 PO (13:20)
--- NOTE | 2020-04-13 15:22 | NUR ---
SAMY met with the patient to follow up on preference for PCP. The patient would like to get set up at [facility] and did not have a peference on provider. SAMY contacted Jelly at [facility] and secured the patient an appointment with the provider, Dr. Frank Philip, on Thursday 04/19 at 1330. SAMY faxed the patient's records to [facility] at [phone]. SAMY notified the patient's RN of the appointment. We are still awaiting to hear from the patient's insurance on if the will approve outpatient services and home health or if they will cover PT/OT in the home. There are five home health agencies on Medicare.govs list that serve [place]: [facility], [facility], [facility], [facility], and [facility]. SAMY contacted all five agencies to inquire if they take Medicaid [employer]. [facility] and [facility] to do not take Medicaid [employer]. [facility] does not service [place]. [facility] reports that they take Medicaid [employer], if it is a Frail and Elderly Waiver. Leydi, at [facility], reports that they do take Medicaid [employer] and that Medicaid might authorize PT/OT in the home. Leydi states that they would not be able to take a patient though for nursing, if she was doing outpatient PT/OT. SAMY discussed sending a referral to [facility] with the patient. The patient was agreeable to this. SAMY faxed a referral to Leydi at [facility] and notified her of d/c tomorrow. SW awaiting their screen.
[2020-04-13 15:49] VITALS: BP 96/74; PULSE 77; TEMP 97.5
--- NOTE | 2020-04-13 18:10 | NUR ---
PATIENT REPORTED PAIN THROUGHOUT THE SHIFT. RECEIEVED PRN FLAVIA TWICE AND PHENAZOPYRIDINE TWICE. PATIENT DRANK MORE FLUIDS THIS SHIFT. PATIENT'S PICC LINE WAS REMOVED BY JERE THIS AFTERNOON. PATIENT NEEDING A LOT OF HELP FROM SIT TO STANDING POSITION TODAY. HAD PATIENT ATTEMPT TO WIPE HERSELF AFTER TOILETING AND SHE ASKED THIS NURSE TO FINISH FOR HER. PATIENT CONTINUES TO NEED HELP GETTING INTO BED AND ASKED FREQUENTLY TO BE REPOSITIONED IN THE BED TODAY. PATIENT CONTINUES ON CONTACT PRECAUTIONS AND CONTINUES TO WEEP FOR BILATERAL UPPER THIGHS.
--- NOTE | 2020-04-14 01:00 | NUR ---
PT REQUEST ROXICODONE FOR LEG PAIN. SEE MAR.
--- NOTE | 2020-04-14 01:47 | NUR ---
PT REQUEST XANAX. SEE MAR.
[2020-04-14 05:38] VITALS: BP 106/59; PULSE 100; TEMP 98.6
--- NOTE | 2020-04-14 12:18 | NUR ---
Patient's two children came up for training on wound dressing and were able to perform the task efficiently. Patient dressing had no drainage to the bilateral lower legs, but patient's thighs continue to weep with clear fluid. Lower legs are healing well, still have darkened skin, but no open areas. Applied kerlix to left lower leg and then applied mimi bandages from feet to upper thigh on bilateral legs. Patient dressed self and this nurse applied chucks pad to her bilateral thighs under underwear to keep clothing dry when transporting home. Patient's stage I pressure ulcer on right buttocks continues to heal. It is now only 3 cm long x 1/2 cm wide and has a bloody skin bed. Aquacel AG was applied and covered with mepilex dressing. Patient tolerated well. Patient's groin and under pannus area was cleaned, patted dry and new desenex powder applied to area. Patient denied any questions.
--- NOTE | 2020-04-14 12:24 | NUR ---
Patient Health Summary, Discharge Summary, and Home Meds printed and reviewed with patient and her two children. Stressed importance of follow up appointments. Called prescription for Silvadene Cream into pharmacy of choice. Belongings gathered by Candelaria including phone, phone horse rider, blue suitcase with clothing, misc. personal items and wound care dressings. Patient was transported via wheelchair by Candelaria and her two children and seatbelted for ride home. Patient and children denied any questions.
--- NOTE | 2020-04-14 15:41 | NUR ---
Tile Mechanic spoke with Aristeo at [facility] and was advised that they cannot provide services in [place], despite being on the Medicare.gov Home Health list. SAMY staffed with Cassandra [facility] Director who advised patient would need to have outpatient PT/OT set up along with outpatient wound care. SW met with patient to provide update. Patient would like PT/OT set up at [facility]. SAMY contacted [facility] and scheduled appointment for 04/19/20 (PT @ 0800, OT @ 0900). SW also faxed a referral and discharge orders to [facility] at fax# [phone]. Patient expressed concern about buttermaker need for transportation for all these appointments. SAMY educated patient on Medicaid transportation and provided contact information for scheduling. SAMY advised patient scheduling has to take place three days in advance and patient expressed understanding. SW offered to schedule transportation for PT/OT appointment but patient states her mom lives close to the hospital and it was not an issue. Patient reports her mother will take her to her first rounds of follow ups but she will start using Medicaid transport later on. SAMY collaborated with AMANDA Restrepo about scheduling appointment for wound care. SAMY contacted [facility] and faxed referral/orders. SW was advised referral would have to be reviewed prior to making appointment. Kaye PATEL provided education to patient and family on dressing changes prior to discharge. SAMY contacted patient's mother, Camille to review discharge plan. No additional needs identified at this time.
--- NOTE | 2020-04-17 13:26 | NUR ---
Discharge QIM scores were reviewed by the team. Code of 6 chosen for toilet hygiene was determined by team discussion to be the most usual performance for this patient during the assessment period. Code of 6 chosen for toileting transfers was determined by team discussion to be the most usual performance for this patient during the assessment period. Code of 3 chosen for sit to lying was determined by team discussion to be the most usual performance for this patient during the assessment period. Code of 6 chosen for lying to sitting on side of bed was determined by team discussion to be the most usual performance for this patient during the assessment period. Code of 4 for sit to stand was determined by team discussion to be the most usual performance for this patient during the assessment period. Code of 6 for chair/bed to chair transfers was determined by team discussion to be the most usual performance for this patient during the assessment period. Code of 6 chosen for walk 10 feet was determined by team discussion to be the most usual performance for this patient during the assessment period.--Cassandra Penaloza,
== END 2020-04-14 12:10 | disposition home health service (06) | DRG 947 ==
PROVIDERS: Physician Assistant; ADMIT Internal Medicine
DX: R53.81 Other malaise (principal); G93.41 Metabolic encephalopathy; I26.99 Other pulmonary embolism without acute cor pulmonale; L03.116 Cellulitis of left lower limb; L03.115 Cellulitis of right lower limb; I82.621 Acute embolism and thrombosis of deep veins of right upper extremity; E87.2 Acidosis; E87.1 Hypo-osmolality and hyponatremia; F41.9 Anxiety disorder, unspecified; K72.90 Hepatic failure, unspecified without coma; E87.5 Hyperkalemia; E83.42 Hypomagnesemia; N76.0 Acute vaginitis; D64.9 Anemia, unspecified; I95.9 Hypotension, unspecified; I89.0 Lymphedema, not elsewhere classified; E16.2 Hypoglycemia, unspecified; F32.9 Major depressive disorder, single episode, unspecified; R33.9 Retention of urine, unspecified; F20.9 Schizophrenia, unspecified; E03.9 Hypothyroidism, unspecified; G89.29 Other chronic pain; F19.10 Other psychoactive substance abuse, uncomplicated; Z79.01 Long term (current) use of anticoagulants; Z90.710 Acquired absence of both cervix and uterus; Z88.0 Allergy status to penicillin; Z88.1 Allergy status to other antibiotic agents
CPT/HCPCS: 99222-AI; 99231-AI; 99232-AI; 99233-AI; 99239; J0878

== ENCOUNTER → 2020-09-01 | Outpatient (CLI) | payer MEDICAID ==
[~2020-09-01] MED LIST changes: +ASPERCREME1 EACH TP; +CUBICIN 500MG500 MG IV; +DEXTROSE 525 GM/50 M IJ; +ELIQUIS 5MG PO; +FLOMAX 0.40.4 MG/CAP PO; +FOLIC ACID 11 MG/TA1 PO; +GLUTOSE 1515 GM PO; +IPRATROPIUM BROM3 M1 IH; +K-TAB10 PO; +K-TAB20 PO; +LIDOJEL; +LOTSPY TOP; +MAG-OX 400400 MG/TAB PO; +MUCUS RELIEF200 MG PO; +MULTI-VITAMIN W1 TA1 PO; +NORMAL SALINE FL5 ML IV; +PHENERGAN 25 TA25 MG PO; +PROAIR HFA0.09 MG/AC IH; +PROAMATINE 5MG T5 MG PO; +PYRIDIUM200 M1; +PYRIDIUM200 M1 PO; +REQUIP5 MG PO; +SILVADENE CREAM1 TU TP; +TESSALON P100 MG/CAP PO; +XANAX .25M0.25 MG/TA PO; +ZINC OXIDE 28GM TOP; +ZOFRAN ODT4 MG PO; +[UNRECOGNIZED DRUG - OTHER] IV
== END ==
LOC: COL.RAD
DX: R16.0 Hepatomegaly, not elsewhere classified (principal); K76.0 Fatty (change of) liver, not elsewhere classified; R74.8 Abnormal levels of other serum enzymes; G93.40 Encephalopathy, unspecified; Z90.49 Acquired absence of other specified parts of digestive tract

== ENCOUNTER → 2020-09-14 | Outpatient (CLI) | payer MEDICAID ==
[2020-09-14] VITALS (12 sets, daily range): BP systolic 93–126; BP diastolic 62–80; PULSE 92–112
[2020-09-14 10:17] LABS: INR 1.3 (0.8-3.0)
--- NOTE | 2020-09-14 11:20 | NUR ---
PT TAKEN BY WHEELCHAIR TO CT. PLACED ON TABLE AND MONITORING EQUIPMENT PLACED.
== END ==
LOC: COL.RAD 09:04
PROVIDERS: Internal Medicine
DX: R74.8 Abnormal levels of other serum enzymes (principal)
CPT/HCPCS: 32108